=== PATIENT | female | born 1995 | race African-American/Black ===

== ENCOUNTER 2021-08-22 08:23 | Day surgery (SDC) | payer OTHER ==
[~2021-08-22] VITALS: Ht 167.6 cm; Wt 88.5 kg
[~2021-08-22 08:23] MED LIST: LIDOCAINE 1% MDV 20ML VIAL SQ PRN; LR 1,000 ML IV ONE
[2021-08-22] MEDS ORDERED: LIDOCAINE 2% 100MG/5ML SDV (FOR ANES.) As Ordered ONE (09:08)
[2021-08-22] MEDS ORDERED: propofoL 200 MG/20 ML VIAL As Ordered ONE (09:08)
[2021-08-22] MEDS ORDERED: fentaNYL 100 MCG/2 ML INJECTION As Ordered ONE ×2 (09:08→10:01)
[2021-08-22] MEDS ORDERED: MIDAZOLAM INJ 2MG/2ML VIAL (J2250 PER 1MG) As Ordered ONE (09:08)
[2021-08-22] MEDS ORDERED: ROCURONIUM BROMIDE 50 MG/5 ML VIAL As Ordered ONE (09:08)
[2021-08-22] MEDS ORDERED: BUPIVACAINE/EPIN 0.5% 30 ML VIAL As Ordered ONE (09:41)
[2021-08-22] MEDS ORDERED: ONDANSETRON 4MG/2ML VIAL As Ordered ONE (09:59)
[2021-08-22] MEDS ORDERED: dexameTHASONE 4 MG/ML 1ML VIAL (J1100 PER 1MG) As Ordered ONE (09:59)
[2021-08-22] MEDS ORDERED: SUGAMMADEX SODIUM 500 MG/5 ML VIAL (BRIDION) As Ordered ONE (10:01)
[2021-08-22] MEDS ORDERED: ONDANSETRON 4MG/2ML VIAL IV PRN ×2 (10:55)
[2021-08-22] MEDS ORDERED: LR 1,000 ML IV SCH ×2 (10:55)
[2021-08-22] MEDS ORDERED: oxyCODONE 5MG TAB PO PRN (10:55)
[2021-08-22] MEDS ORDERED: HYDROcodone/APAP LIQUID 7.5-325MG 15ML UDC (LORTAB ELIXIR) PO PRN (10:55)
[2021-08-22] MEDS: fentaNYL 100 MCG/2 ML INJECTION IV PRN ×3 (11:11→11:24)
[2021-08-22 12:20] VITALS: BP 115/71
== END 2021-08-22 13:08 | disposition home or self-care (01) ==
LOC: M SDC 08:23
PROVIDERS: ATTEND Otolaryngology
DX: J35.01 Chronic tonsillitis (principal); F12.10 Cannabis abuse, uncomplicated
CPT/HCPCS: 42826; 81025; 88302; J1100; J2250; J2405; J3010

== ENCOUNTER 2021-08-27 22:12 | Emergency (ER) | payer OTHER ==
[~2021-08-27] VITALS: Ht 167.6 cm; Wt 89.5 kg
[2021-08-27] MEDS ORDERED: [UNRECOGNIZED DRUG - OTHER] (22:24)
[2021-08-27] MEDS ORDERED: HYDR1SOL (22:24)
[2021-08-27] MEDS ORDERED: NS 1,000 ML IV ONE (23:50)
[2021-08-27] MEDS ORDERED: KETOROLAC 30 MG/ML 1ML VIAL IV ONE (23:50)
[2021-08-28 00:21] LABS: BASO % 0.6 % (0.0-1.0); EOS # 0.1 10^3/uL (0.0-0.5); HEMATOCRIT 38.3 % (36.0-47.0); HEMOGLOBIN 12.9 g/dl (12.0-15.5); LYMPH # 2.4 10^3/uL (1.5-5.0); LYMPH % 37.7 % (24.0-44.0); MEAN CORPUSCULAR HEMOGLOBIN 29.5 pg (27.0-33.0); MEAN CORPUSCULAR HGB CONC 33.7 g/dl (32.0-36.5); MEAN CORPUSCULAR VOLUME 87.4 fl (80.0-96.0); MONO # 0.6 10^3/uL (0.0-0.8); MONO % 9.4 % (2.0-8.0); NEUTROPHILS # 3.2 10^3/uL (1.5-8.5); NEUTROPHILS % 50.8 % (36.0-66.0); PLATELET COUNT, AUTOMATED 330 10^3/uL (150-450); RED BLOOD COUNT 4.38 10^6/uL (4.00-5.40); WHITE BLOOD COUNT 6.3 10^3/uL (4.0-10.0)
[2021-08-28] MEDS ORDERED: dexameTHASONE 20MG/5ML VIAL (J1100 PER 1MG) IV ONE (00:40)
[2021-08-28 00:52] LABS: FREE THYROXINE INDEX 4.6 % (1.3-4.8); THYROID STIMULATING HORMONE 0.325 uIU/ML (0.358-3.740); THYROXINE (T4) 13.1 UG/DL (4.5-12.0)
[2021-08-28] MEDS ORDERED: LORT1ELX PO (00:58)
[2021-08-28 01:02] VITALS: BP 108/57
--- OUTSIDE RECORDS SUMMARY | 2021-08-28 01:03 | CCD ---
Author Author [facility] [place] Organization [facility] [place] Address Unknown Phone Unavailable Care Team Providers Care Management Technician Name Role Phone Adin Avitia PH.D., M.D. Unavailable Unavailable SadiAdin PH.Harley., M.D. Unavailable Unavailable SadiAdin PH.Harley., M.D. Unavailable Unavailable Sadi, Adin Shannon PH.Harley., M.D. Unavailable Unavailable SadiAdin PH.Harley., M.D. Unavailable Unavailable SadiAdin PH.Harley., M.D. Unavailable Unavailable SadiAdin PH.Harley., M.D. Unavailable Unavailable SadiAdin PH.Harley., M.D. Unavailable Unavailable SadiAdin PH.Harley., M.D. Unavailable Unavailable SadiAdin PH.D., M.D. Unavailable Unavailable SadiAdin PH.D., M.D. Unavailable Unavailable SadiAdin PH.D., M.D. Unavailable Unavailable SadiAdin PH.D., M.D. Unavailable Unavailable SadiAdin PH.D., M.D. Unavailable Unavailable SadiAdin PH.D., M.D. Unavailable Unavailable SadiAdin PH.D., M.D. Unavailable Unavailable SadiAdin PH.D., M.D. Unavailable Unavailable Sadi, Adin Shannon PH.D., M.D. Unavailable Unavailable Sadi, Adin Shannon PH.D., M.D. Unavailable Unavailable Sadi, Adin Shannon PH.D., M.D. Unavailable Unavailable Sadi, Adin Shannon PH.D., M.D. Unavailable Unavailable Sadi, Adin Shannon PH.D., M.D. Unavailable Unavailable Sadi, C Shiva PH.D., M.D. Unavailable Unavailable Sadi, C Shiva PH.D., M.D. Unavailable Unavailable Sadi, C Shiva PH.D., M.D. Unavailable Unavailable Sadi, C Shiva PH.D., M.D. Unavailable Unavailable Sadi, C Shiva PH.D., M.D. Unavailable Unavailable Sadi, C Shiva PH.D., M.D. Unavailable Unavailable Sadi, C Shiva PH.D., M.D. Unavailable Unavailable Sadi, C Shiva PH.D., M.D. Unavailable Unavailable Sadi, C Shiva PH.D., M.D. Unavailable Unavailable Sadi, C Shiva PH.D., M.D. Unavailable Unavailable Sadi, C Shiva PH.D., M.D. Unavailable Unavailable Sadi, C Shiva PH.D., M.D. Unavailable Unavailable Sadi, C Shiva PH.D., M.D. Unavailable Unavailable Sadi, C Shiva PH.D., M.D. Unavailable Unavailable Sadi, C Shiva PH.D., M.D. Unavailable Unavailable Sadi, C Shiva PH.D., M.D. Unavailable Unavailable Sadi, C Shiva PH.D., M.D. Unavailable Unavailable Sadi, C Shiva PH.D., M.D. Unavailable Unavailable Sadi, C Shiva PH.D., M.D. Unavailable Unavailable Sadi, C Shiva PH.D., M.D. Unavailable Unavailable Sadi, C Shiva PH.D., M.D. Unavailable Unavailable Sadi, C Shiva PH.D., M.D. Unavailable Unavailable Sadi, C Shiva PH.D., M.D. Unavailable Unavailable Sadi, C Shiva PH.D., M.D. Unavailable Unavailable Sadi, C Shiva PH.D., M.D. Unavailable Unavailable Sadi, C Shiva PH.D., M.D. Unavailable Unavailable Sadi, C Shiva PH.D., M.D. Unavailable Unavailable Sadi, C Shiva PH.D., M.D. Unavailable Unavailable Sadi, C Shiva PH.D., M.D. Unavailable Unavailable Sadi, C Shiva PH.D., M.D. Unavailable Unavailable Sadi, C Shiva PH.D., M.D. Unavailable Unavailable Sadi, C Shiva PH.D., M.D. Unavailable Unavailable Sadi, C Shiva PH.D., M.D. Unavailable Unavailable Sadi, C Shiva PH.D., M.D. Unavailable Unavailable Sadi, C Shiva PH.D., M.D. Unavailable Unavailable Sadi, C Shiva PH.D., M.D. Unavailable Unavailable Sadi, C Shiva PH.D., M.D. Unavailable Unavailable Sadi, C Shiva PH.D., M.D. Unavailable Unavailable Sadi, C Shiva PH.D., M.D. Unavailable Unavailable Sadi, C Shiva PH.D., M.D. Unavailable Unavailable Sadi, C Shiva PH.D., M.D. Unavailable Unavailable Sadi, C Shiva PH.D., M.D. Unavailable Unavailable Sadi, C Shiva PH.D., M.D. Unavailable Unavailable Sadi, C Shiva PH.D., M.D. Unavailable Unavailable Sadi, C Shiva PH.D., M.D. Unavailable Unavailable Sadi, C Shiva PH.D., M.D. Unavailable Unavailable Sadi, C Shiva PH.D., M.D. Unavailable Unavailable Sadi, C Shiva PH.D., M.D. Unavailable Unavailable Sadi, C Shiva PH.D., M.D. Unavailable Unavailable Sadi, C Shiva PH.D., M.D. Unavailable Unavailable Sadi, C Shiva PH.D., M.D. Unavailable Unavailable Sadi, C Shiva PH.D., M.D. Unavailable Unavailable Sadi, C Shiva PH.D., M.D. Unavailable Unavailable Sadi, C Shiva PH.D., M.D. Unavailable Unavailable Sadi, C Shiva PH.D., M.D. Unavailable Unavailable Sadi, C Shiva PH.D., M.D. Unavailable Unavailable Sadi, C Shiva PH.D., M.D. Unavailable Unavailable Sadi, C Shiva PH.D., M.D. Unavailable Unavailable Sadi, C Shiva PH.D., M.D. Unavailable Unavailable Sadi, C Shiva PH.D., M.D. Unavailable Unavailable Re-disclosure Warning The records that you are about to access may contain information from federally-assisted alcohol or drug abuse programs. If such information is present, then the following federally mandated warning applies: This information has been disclosed to you from records protected by federal confidentiality rules (42 CFR part 2). The federal rules prohibit you from making any further disclosure of this information unless further disclosure is expressly permitted by the written consent of the person to whom it pertains or as otherwise permitted by 42 CFR part 2. A general authorization for the release of medical or other information is NOT sufficient for this purpose. The Federal rules restrict any use of the information to criminally investigate or prosecute any alcohol or drug abuse patient.The records that you are about to access may contain highly sensitive health information, the redisclosure of which is protected by Article 27-F of the [place] Public [employer] law. If you continue you may have access to information: Regarding HIV / AIDS; Provided by facilities licensed or operated by the [facility] Office of Mental Health; or Provided by the [facility] Office for People With Developmental Disabilities. If such information is present, then the following [facility] mandated warning applies: This information has been disclosed to you from confidential records which are protected by state law. State law prohibits you from making any further disclosure of this information without the specific written consent of the person to whom it pertains, or as otherwise permitted by law. Any unauthorized further disclosure in violation of state law may result in a fine or retirement sentence or both. A general authorization for the release of medical or other information is NOT sufficient authorization for further disc losure. Encounters Encounter Providers Location Date Indications Data Source(s ) Outpatient Attender: Shiva Avitia PH.D., M.D. Jaspreet/Joan/Donny gross/Kam 07/14/2021 09:00:00 AM EDT [facility] ([facility], ) Medications Medication Brand Name Start Date Product Form Dose Route Admi nistrative Instructions Pharmacy Instructions Status Indications Reaction Description Data Source(s) First-Mouthwash BLM 08/23/2021 12:00:00 AM EST active [facility] ([facility], ) Acetaminophen 21.7 MG/ML / Hydrocodone Bitartrate 0.5 MG/ML Oral Solution Hydrocodone Bitartrate/Acetaminophen 08/22/2021 12:00:00 AM EST ORAL active [facility] ([facility], ) No Active Medications 07/14/2021 12:00:00 AM EDT completed [facility] ([facility], ) Insurance Providers Payer name Policy type / Coverage type Policy ID Covered democrat ID Covered democrat's relationship to [place] Policy [place] Plan Information [facility] [id number] [facility] [id number] Problems, Conditions, and Diagnoses Code Display Name Description Problem Type Effective Dates Data Source(s) J35.01 Chronic tonsillitis Chronic tonsillitis Problem 1 12:00:00 AM EDT [facility] ([facility]) Surgeries/Procedures Procedure Description Date Indications Data Source(s) Tonsillectomy > 12 Years 08/22/2021 12:00:00 AM EST [facility] ([facility]) OFFICE OUTPATIENT NEW 45 MINUTES 07/14/2021 12:00:00 A M EDT [facility] ([facility]) Results ID Date Data Source [id number] 08/22/2021 10:20:00 AM EST [facility] ([facility]) Name Value Range Interpretation Code Description Data Lety rce(s) Supporting Document(s) Surgical pathology study [facility] FINAL DIAGNOSIS A-Right tonsil, tonsillectomy: Squamous epithelial-lined benign hyperplastic lymphoid tissue, consistent with tonsil. B-Left tonsil, tonsillectomy: Squamous epithelial-lined benign hyperplastic lymphoid tissue, consistent with tonsil. 08/23/2021 - 1041 CLINICAL DIAGNOSIS Chronic tonsillitis 08/23/[id number] GROSS DIAGNOSIS A - Received in formalin labeled "right tonsil" and consists of a fragment of tonsil, 2.5 x 1 x 1 cm. The specimen is grossly unremarkable. [employer] section submitted in one. B - Received in formalin labeled "left tonsil" and consists of a fragment of tonsil, 2.3 x 1.5 x 1 cm. The specimen is grossly unremarkable. [employer] section submitted in one. -OA [id number] Signed MYLENE POWERS MD 08/23/2021 1043 ID Date Data Source [id number] 08/09/2021 12:00:00 AM EST [facility] Name Value Range Interpretation Code Description Data Lety rce(s) Supporting Document(s) SARS-COV-2 Negative [facility] This lab was ordered by Reyna and re ported by Reyna. Procedure Social History No Information Vital Signs ID Date Data Source UNK Name Value Range Interpretation Code Description Data Source(s) [place] body weight 125 [lb_av] 125 [lb_av] [facility] ([facility]) Body height 65.5 [in_i] 65.5 [in_i] [facility] ([facility]) 5'5.50" Diastolic blood pressure 66 mm[Hg] 66 mm[Hg] [facility] ([facility]) Body weight 203.00 [lb_av] 203.00 [lb_av] [facility] Heart rate 79 /min 79 /min [facility] ([facility]) Oxygen saturation in Arterial blood by Pulse oximetry 99 % 99 % [facility] ([facility]) Body mass index (BMI) [Ratio] 33.3 kg/m2 33.3 k g/m2 [facility] ([facility]) Body weight 92.081 kg 92.081 kg [facility] ([facility]) Body surface area Derived from formula 2.00 m2 2.00 m2 [facility] ([facility]) Systolic blood pressure 124 mm[Hg] 124 mm[Hg] Ani CASTRO ([facility])
--- NOTE | 2021-08-28 02:10 | REPVR ---
PROCEDURE INFORMATION: Exam: XR Soft Tissue Neck Exam date and time: 08/27/2021 12:38 AM Age: 26 years old Clinical indication: Other: Post op swelling TECHNIQUE: Imaging protocol: XR of the soft tissues of the neck. COMPARISON: No relevant prior studies available. FINDINGS: Airway: Normal. No abnormal narrowing. Soft tissues: Neck soft tissue swelling. Bones/joints: Elongated C7 transverse processes. Minimal C4-C5 and C5-C6 degenerative disc space loss. No acute fracture or dislocation. IMPRESSION: No acute osseous abnormality. Electronically signed by: Shiva Pruitt On 08/28/2021 02:10:04 AM
--- NOTE | 2021-08-28 02:30 | REPVR ---
PROCEDURE INFORMATION: Exam: US Soft Tissue Head and Neck, Thyroid Exam date and time: 08/28/2021 12:54 AM Age: 26 years old Clinical indication: Neck pain; Prior surgery; Surgery type: Tonsilectomy; Additional info: Anterior neck swelling TECHNIQUE: Imaging protocol: Real-time ultrasound scan of the neck with image documentation. Exam focused on the thyroid. COMPARISON: CR Soft Tissue Neck 2021-08-27 23:47 FINDINGS: Right thyroid lobe: No nodules. Left thyroid lobe: No nodules. Isthmus: No nodules. IMPRESSION: Unremarkable thyroid. Electronically signed by: Shiva Pruitt On 08/28/2021 02:30:11 AM
[2021-08-28] MEDS ORDERED: HYDR1SOL22 PO ×2 (10:56→15:30)
[2021-08-28] MEDS ORDERED: HYDR1SOL PO (16:12)
== END 2021-08-28 01:13 | disposition home or self-care (01) ==
LOC: M ED 22:12
DX: G89.18 Other acute postprocedural pain (principal); J02.9 Acute pharyngitis, unspecified; E86.0 Dehydration; M50.321 Other cervical disc degeneration at C4-C5 level; M50.322 Other cervical disc degeneration at C5-C6 level
CPT/HCPCS: 36415; 70360; 76536; 80047; 84436; 84443; 84479; 84702; 85025; 96361; 96374; 96375; 99284; J1100; J1885